=== PATIENT | male | born 1995 | race Hispanic/Latino ===

== ENCOUNTER 2017-05-22 21:17 | Emergency (ER) | payer OTHER ==
[~2017-05-22] VITALS: Ht 162.6 cm; Wt 90.9 kg
[2017-05-22 21:34] VITALS: BP 142/87; PULSE 85; RESP 20; O2SAT 97
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
[2017-05-22] MEDS ORDERED: CYCL10TA9 PO (23:37)
[2017-05-22] MEDS ORDERED: NPR500T PO (23:37)
[2017-05-23 00:08] VITALS: BP 126/84; PULSE 87; RESP 18; O2SAT 96
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
== END 2017-05-23 00:07 | disposition home or self-care (01) ==
LOC: SED 21:17
DX: S16.1XXA Strain of muscle, fascia and tendon at neck level, initial encounter (principal); S13.4XXA Sprain of ligaments of cervical spine, initial encounter; S80.11XA Contusion of right lower leg, initial encounter; V43.53XA Car driver injured in collision with pick-up truck in traffic accident, initial encounter; Y93.89 Activity, other specified; Y99.8 Other external cause status; Y92.410 Unspecified street and highway as the place of occurrence of the external cause; F41.9 Anxiety disorder, unspecified; Z87.891 Personal history of nicotine dependence; Z88.8 Allergy status to other drugs, medicaments and biological substances